=== PATIENT | male | born 1985 ===

== ENCOUNTER 2021-12-13 13:19 | Emergency (ER) | payer OTHER ==
[~2021-12-13] VITALS: Ht 180.3 cm; Wt 79.5 kg
[2021-12-13] MEDS ORDERED: LORazepam 2 MG TABLET PO ONE (14:15)
[2021-12-13 14:46] LABS: ANION GAP 6 mmol/L (8-16); CALCIUM, TOTAL 8.8 mg/dL (8.8-10.5); CARBON DIOXIDE 28 mmol/L (22-29); CHLORIDE 101 mmol/L (98-107); CREATININE 1.04 mg/dL (0.60-1.30); GLOMERULAR FILTR. RATE CALC > 60 mL/min (>60); GLUCOSE,RANDOM 123 mg/dL (70-110); POTASSIUM 3.7 mmol/L (3.5-5.1); SODIUM SERUM 135 mmol/L (136-145); UREA NITROGEN, BLOOD 16 mg/dL (7-18)
[2021-12-13 16:53] VITALS: BP 129/72
== END 2021-12-13 16:55 ==
LOC: EMS 13:19
DX: F41.9 Anxiety disorder, unspecified (principal); F32.A Depression, unspecified; R07.9 Chest pain, unspecified
CPT/HCPCS: 80048; 84484; 93005; 99284